=== PATIENT | male | born 1940 | race Caucasian/White ===

== ENCOUNTER 2019-10-21 16:01 | Emergency (ER) | payer MEDICARE, BC ==
[2019-10-21 16:15] VITALS: BP 129/69; PULSE 74
--- NOTE | 2019-10-21 16:29 | EDM.PDOC ---
ED HPI GENERAL MEDICAL PROBLEM - General Chief Complaint: Lower Extremity Injury/Pain Stated Complaint: LEFT KNEE PAIN Time Seen by Provider: 10/21/19 16:15 Source of Information: Reports: Patient History Limitations: Reports: No Limitations - History of Present Illness INITIAL COMMENTS - FREE TEXT/NARRATIVE: This 79 yo male patient reports to the ED under the direction of a provider at the [facility]. The patient reports he was seen in the [facility] yesterday for swelling in his left knee. The patient had a follow-up visit this morning. The patient reports he had labs drawn this morning at about 0900 and was called by his provider just prior to his arrival here in the ED when he was advised to come to the ED for further evaluation and management. According to his provider, the patient had a WBC of 19.0 and an elevated CRP. The provider was worried about septic arthritis. The patient reports he is from [place] and was planning on going home today. Duration: Day(s):, Constant, Getting Worse Location: Reports: Lower Extremity, Left Quality: Reports: Other Severity: Moderate Improves with: Reports: None Worsens with: Reports: None Context: Reports: Other Associated Symptoms: Reports: Other Left Knee Pain Score (Numeric/FACES): 2 - Related Data Allergies Allergy/AdvReac Type Severity Reaction Status Date / Time No Known Allergies Allergy Verified 10/21/19 16:27 Home Meds: Home Meds Aspirin [Halfprin] 81 mg PO DAILY 04/19/14 [History] gemfibroziL [Lopid] 1 tab PO DAILY 04/19/14 [History] hydroCHLOROthiazide [Hydrochlorothiazide] 1 tab PO DAILY 04/19/14 [History] Fish Oil/[place]-3 Fatty Acids [Fish Oil 1,000 MG] 1 cap PO DAILY 10/21/19 [Hist ory] Social & Family History - Tobacco Use Smoking Status *Q: Never Smoker Second Hand Smoke Exposure: No - Caffeine Use Caffeine Use: Reports: Coffee, Soda - Recreational Drug Use Recreational Drug Use: No Review of Systems - Review of Systems Review Of Systems: Comprehensive ROS is negative, except as noted in HPI. ED EXAM, GENERAL - Physical Exam Exam: See Below Exam Limited By: No Limitations General Appearance: Alert, WD/WN, Mild Distress Ears: Normal External Exam, Normal Canal, Hearing Grossly Normal, Normal TMs Nose: Normal Inspection, Normal Mucosa, No Blood Throat/Mouth: Normal Inspection, Normal Lips, Normal Teeth, Normal Gums, Normal Oropharynx, Normal Voice, No Airway Compromise Head: Atraumatic, Normocephalic Neck: Normal Inspection, Supple, Non-Tender, Full Range of Motion Respiratory/Chest: No Respiratory Distress, Lungs Clear, Normal Breath Sounds, No Accessory Muscle Use, Chest Non-Tender Cardiovascular: Normal Peripheral Pulses, Regular Rate, Rhythm, No Edema, No Gallop, No JVD, No Murmur, No Rub GI/Abdominal: Normal Bowel Sounds, Soft, Non-Tender, No Organomegaly, No Distention, No Abnormal Bruit, No Mass (Male) Exam: Deferred Rectal (Males) Exam: Deferred Back Exam: Normal Inspection, Full Range of Motion, NT Extremities: Leg Pain (left knee pain, erythema ) Neurological: Alert, Oriented, CN II-XII Intact, Normal Cognition, Normal Gait, Normal Reflexes, No Motor/Sensory Deficits Psychiatric: Normal Affect, Normal Mood Skin Exam: Warm, Dry, Normal Color, No Rash, Wound/Incision (below his left knee (the patient reports he was kneeling on his knee 3-4 days ago and injured the area)) Course - Vital Signs Last Recorded V/S: Last Vital Signs Temp 36.6 C 10/21/19 16:08 Pulse 74 10/21/19 16:08 Resp 16 10/21/19 16:08 BP 129/69 10/21/19 16:08 Pulse Ox 97 10/21/19 16:08 - Orders/Labs/Meds Orders: Active Orders 24 hr Category Date Time Status CULTURE BLOOD [BC] Stat Lab 10/21/19 16:44 Received CULTURE BLOOD [BC] Stat Lab 10/21/19 16:48 Received Blood Culture x2 Reflex Set [OM.PC] Stat Oth 10/21/19 16:15 Ordered Labs: Laboratory Tests 10/21/19 10/21/19 10/21/19 Range/Units 16:44 16:44 16:44 WBC 19.2 H (5.0-10.0) 10^3/uL RBC 4.62 (4.6-6.2) 10^6/uL Hgb 13.8 L (14.0-18.0) g/dL Hct 40.3 (40.0-54.0) % MCV 87.2 (80-100) fL MCH 29.9 (27.0-34.0) pg MCHC 34.2 (33.0-35.0) g/dL Plt Count 225 (150-450) 10^3/uL Neut % (Auto) 79.0 H (42.2-75.2) % Lymph % (Auto) 10.5 L (20.5-50.1) % Sampson % (Auto) 9.5 H (2-8) % Eos % (Auto) 0.8 L (1.0-3.0) % Baso % (Auto) 0.2 (0.0-1.0) % Sodium 134 L (136-145) mmol/L Potassium 2.9 L (3.5-5.1) mmol/L Chloride 96 L (98-107) mmol/L Carbon Dioxide 28 (21-32) mmol/L Anion Gap 12.9 (7-13) mEq/L BUN 25 H (7-18) mg/dL Creatinine 1.54 H (0.70-1.30) mg/dL Est Cr Clr Drug Dosing 37.63 mL/min Estimated GFR (MDRD) 44 BUN/Creatinine Ratio 16.2 (No establ ref range) Glucose 95 (74-99) mg/dL Lactic Acid 1.2 (0.4-2.0) mmol/L Calcium 8.0 L (8.5-10.1) mg/dL Total Bilirubin 1.9 H (0.2-1.0) mg/dL AST 27 (15-37) U/L ALT 40 (16-63) U/L Alkaline Phosphatase 124 H (46-116) U/L Total Protein 7.2 (6.4-8.2) g/dL Albumin 3.4 (3.4-5.0) g/dL Globulin 3.8 Albumin/Globulin Ratio 0.9 - Re-Assessments/Exams Free Text/Narrative Re-Assessment/Exam: 10/21/19 18:01 The patient was advised of the examination, lab and x-ray results. The patient was encouraged to allow for a referral to a hospital with an orthopedic provider while being on IV antibiotics. The patient requested that he be allowed to talk to his about options for continued care. Departure - Departure Time of Disposition: 18:09 Disposition: Against Medical Advice 07 Condition: Fair Clinical Impression: Infection of left knee - Discharge Information *PRESCRIPTION DRUG MONITORING PROGRAM REVIEWED*: Not Applicable *COPY OF PRESCRIPTION DRUG MONITORING REPORT IN PATIENT [place]: Not Applicable Forms: ED Department Discharge Care Plan Goals: The patient was advised of the examination, lab and x-ray results during the visit. The patient was recommended to allow us to call [facility] in [place] and transfer him by ambulance with an IV and antibiotics going during the trip. The patient refused and would like to leave to transport himself directly to [facility]. The patient was given a copy of his lab results and x-ray (on CD) prior to leaving the ED. The patient did leave against medical advice with the understanding of the seriousness of his situation and infection. Sepsis Event Note (ED) - Evaluation Sepsis Screening Result: No Definite Risk - Focused Exam Vital Signs: Vital Signs Temp Pulse Resp BP Pulse Ox 10/21/19 16:08 36.6 C 74 16 129/69 97 - My Orders Last 24 Hours: My Active Orders 10/21/19 16:15 Blood Culture x2 Reflex Set [OM.PC] Stat 10/21/19 16:44 CULTURE BLOOD [BC] Stat 10/21/19 16:48 CULTURE BLOOD [BC] Stat - Assessment/Plan Last 24 Hours: My Active Orders 10/21/19 16:15 Blood Culture x2 Reflex Set [OM.PC] Stat 10/21/19 16:44 CULTURE BLOOD [BC] Stat 10/21/19 16:48 CULTURE BLOOD [BC] Stat
[2019-10-21 17:11] LABS: ANION GAP 12.9 mEq/L (7-13)
--- NOTE | 2019-10-21 17:32 | CR ---
PROCEDURE INFORMATION: Exam: XR Left Knee Exam date and time: 10/21/2019 5:11 PM Age: 79 years old Clinical indication: Pain; Knee; Left; Additional info: Left knee swelling and pain TECHNIQUE: Imaging protocol: XR Left knee. Views: 3 views. COMPARISON: No relevant prior studies available. FINDINGS: Bones/joints: Small joint effusion. Internal derangement is not excluded. Consider MRI if clinically relevant. Osteophytosis in the medial and lateral compartments. No acute fracture or dislocation. Soft tissues: Enthesopathy at the insertion of the quadriceps tendon. Prepatellar edema. IMPRESSION: Small joint effusion. Internal derangement is not excluded. Consider MRI if clinically relevant. Osteophytosis in the medial and lateral compartments. Enthesopathy at the insertion of the quadriceps tendon. No acute fracture or dislocation. Prepatellar edema.
== END 2019-10-21 18:36 | disposition left against medical advice (07) ==
LOC: DL.ED 16:01
DX: L08.9 Local infection of the skin and subcutaneous tissue, unspecified (principal); Z79.82 Long term (current) use of aspirin; Z79.899 Other long term (current) drug therapy
CPT/HCPCS: 36415; 73562-LT; 80053; 83605; 85025; 87040; 99283-25; 99284